=== PATIENT | female | born 1970 | race Caucasian/White ===

== ENCOUNTER 2022-02-23 19:47 | Emergency (ER) | payer OTHER ==
[~2022-02-23] VITALS: Ht 162.6 cm; Wt 74.8 kg
--- NOTE | 2022-02-23 20:13 | NUR ---
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 -HT -BLOOD THINNER -KO. AWAKE AND ALERT X4 BREATHING EVEN AND UNLABORED GUARDING LUE ENDORSES 10/10 PAIN. SUSSY WAS AT BEDSIDE FOR EVAL.
[2022-02-23] MEDS ORDERED: KETOROLAC TROMETHAMINE INJ 60 MG/2 ML VIAL IM ONE (20:30)
[2022-02-23] MEDS ORDERED: HYDROCODONE/APAP 5/325MG TABLET PO ONE (20:30)
[2022-02-23] MEDS ORDERED: HYDROCODONE/APAP 5/325MG TABLET ONE (20:56)
[2022-02-23] MEDS ORDERED: KETOROLAC TROMETHAMINE INJ 30 MG/ML VIAL ONE (20:56)
[2022-02-23] MEDS ORDERED: MORPHINE SULFATE INJ 4 MG/ML DISP.SYRIN IM ONE (23:00)
[2022-02-23] MEDS ORDERED: NAPR-1009 PO (23:03)
[2022-02-23] MEDS ORDERED: HYDR-4303 PO (23:03)
[2022-02-23] MEDS ORDERED: METH4TAB3 PO (23:03)
--- NOTE | 2022-02-23 23:26 | NUR ---
Patient discharged to home in stable condition. Written and verbal after care instructions given. Patient verbalizes understanding of instruction.
[2022-02-23 23:29] VITALS: BP 187/86
== END 2022-02-23 23:33 | disposition home or self-care (01) ==
LOC: ER 19:50
DX: S52.502A Unspecified fracture of the lower end of left radius, initial encounter for closed fracture (principal); M47.9 Spondylosis, unspecified; M51.36 Other intervertebral disc degeneration, lumbar region; Z79.899 Other long term (current) drug therapy; W18.39XA Other fall on same level, initial encounter; Y93.89 Activity, other specified; Y92.89 Other specified places as the place of occurrence of the external cause; Y99.8 Other external cause status
CPT/HCPCS: 99284; 29125; 96372 ×2; 72100; 73090; 73110; J2270; J1885